=== PATIENT | male | born 2000 | race Caucasian/White ===

== ENCOUNTER 2025-03-26 19:44 | Emergency (ER) | payer OTHER, MEDICAID ==
[~2025-03-26] VITALS: Ht 170.2 cm; Wt 79.5 kg
--- NOTE | 2025-03-26 20:31 | ED.PDOC ---
Musculoskeletal HPI Comments 25y M who presents to the ED for chief complaint of L hand injury. Pt was playing a virtual simulation game and state he hit a wall with his L hand, index finger earlier this evening. Pt has since been having pain and swelling to the L index finger with noted CMS intact. Pt in the ED, otherwise denies numbness and swelling. Pt denies any other symptoms. Chief Complaint: Upper Extremity Time Seen by MD: 20:28 Reviewed Notes: Medications, Allergies Allergies: Coded Allergies: No Known Drug Allergy (Verified Allergy, Unknown, 03/26/25) Information Source: Patient, Friend Mode of Arrival: Ambulatory Brought in by: friend Past Medical History PAST MEDICAL HISTORY: Denies Surgical History: Denies all surgeries Family History Family History: Reviewed,noncontributory to illness Social History Smoker: Non-Smoker Alcohol: Denies ETOH Use Drugs: Denies Drug Use Lives In: Home Constitutional: denies: chills, diaphoresis, fatigue, fever, malaise, sweats, weakness, others EENTM: denies: blurred vision, double vision, ear bleeding, ear discharge, ear drainage, ear pain, ear ringing, eye pain, eye redness, hearing loss, mouth pain, mouth swelling, nasal discharge, nose bleeding, nose congestion, nose pain, photophobia, tearing, throat pain, throat swelling, voice changes, others Respiratory: denies: cough, hemoptysis, orthopnea, SOB at rest, shortness of breath, SOB with excertion, stridor, wheezing, others Cardiovascular: denies: chest pain, dizzy spells, diaphoresis, Dyspnea on exertion, edema, irregular heart beat, left arm pain, lightheadedness, palpitations, PND, syncope, others Gastrointestinal: denies: abdomen distended, abdominal pain, blood streaked bowels, constipated, diarrhea, dysphagia, difficulty swallowing, hematemesis, melena, nausea, poor appetite, poor fluid intake, rectal bleeding, rectal pain, vomiting, others Genitourinary: denies: burning, dysuria, flank pain, frequency, hematuria, incontinence, penile discharge, penile sore, pain, testicle pain, testicle swelling, urgency, others Neurological: denies: dizziness, fainting, headache, left sided numbness, left sided weakness, numbness, paresthesia, pre-existing deficit, right sided numbness, right sided weakness, seizure, speech problems, tingling, tremors, weakness, others Musculoskeletal: reports: joint pain, joint swelling; denies: back pain, gout, muscle pain, muscle stiffness, neck pain, others Integumetry: denies: bruises, change in color, change in hair/nails, dryness, laceration, lesions, lumps, rash, wounds, others Allergic/Immunocompromised: denies: Difficulty Healing, Frequent Infections, Hives, Itching, others Hematologic/Lymphatic: denies: anemia, blood clots, easy bleeding, easy bruising, swollen glands, others Endocrine: denies: excessive hunger, excessive sweating, excessive thirst, excessive urination, flushing, intolerance to cold, intolerance to heat, unexplained weight gain, unexplained weight loss, others Psychiatric: denies: anxiety, bipolar disorder, depression, hopeless, panic disorder, schizophrenia, sleepless, suicidal, others All Other Systems: Reviewed and Negative Physical Exam General Appearance: No Apparent Distress, Normal HEENT: Normal ENT Inspection, Pharynx Normal, TMs Normal Neck: Full Range of Motion, Non-Tender, Normal, Normal Inspection Respiratory: Chest Non-Tender, Lungs Clear, No Accessory Muscle Use, No Respiratory Distress, Normal Breath Sounds Cardiovascular: No Edema, No JVD, No Murmur, No Gallop, Normal Peripheral Pulses, Regular Rate/Rhythm Breast Exam: Deferred Gastrointestinal: No Organomegaly, Non Tender, No Pulsatile Mass, Normal Bowel Sounds, Soft Genitalia: Deferred Pelvic: Deferred Rectal: Deferred Extremities: Tender (L hand index finger) Musculoskeletal : Apperance: Normal Neurologic: Alert, 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 Was a procedure done?: No Differential Diagnosis EXT Differential Diagnosis: Fracture, Sprain, Contusion X-Ray, Labs, Meds, VS Vital Signs Date Time Temp Pulse Resp B/P (MAP) Pulse Ox O2 Delivery O2 Flow Rate FiO2 03/26/25 20:09 98.2 104 18 130/97 95 98.2 X-Ray, Labs, Meds, VS Comment Fracture of the left hand 2nd digit MCP Patient placed in volar splint Advised to follow up with PCP for orthopedic referral Time of 1ST Reevaluation: 21:00 Reevaluation 1ST: Unchanged Patient Education/Counseling: Diagnosis, Treatment, Need For Follow Up (Follow up with computer specialist in next available appointment) Family Education/Counseling: Diagnosis, Treatment, Need For Follow Up Departure 1 Departure Time of Disposition: 20:48 Impression: Primary Impression: Hand fracture, left Qualified Codes: S62.92XA - Unspecified fracture of left hand, initial encounter for closed fracture Disposition: HOME / SELF CARE / HOMELESS Condition: Stable Referrals: Orthopedics Discharged With: Self Critical Care Note Critical Care Time?: No Stability Stability form required: No Heart Score Heart Score: Heart Score Response (Comments) Value History N/A 0 EKG N/A 0 Age N/A 0 Risk Factors N/A 0 Troponin N/A 0 Total 0 I personally scribed for CHIQUIS PADRON ([email or web address]) on 03/26/25 at 20:31. Electronically submitted by Magdi BOYLE). CHIQUIS PADRON Mar 26, 2025 20:31
--- NOTE | 2025-03-26 20:52 | DVH ---
EXAM: XY L HAND 3V XRAY REASON FOR EXAM: 2nd digit pain TECHNIQUE: PA, lateral, and oblique views of the left hand are submitted for review. COMPARISON: None FINDINGS: There is acute, nondisplaced oblique fracture through the head and neck of the 2nd metacarpal with intra-articular extension. There is moderate soft tissue swelling about the 2nd metacarpophalangeal joint. IMPRESSION: Acute, nondisplaced oblique fracture through the head and neck of the 2nd metacarpal with intra-articular extension.
[2025-03-26 21:14] VITALS: BP 135/81; PULSE 65; RESP 18; TEMP 97.9; O2SAT 95
== END 2025-03-26 21:16 | disposition home or self-care (01) ==
LOC: ER 19:44
DX: S62.92XA Unspecified fracture of left hand, initial encounter for closed fracture (principal); W22.8XXA Striking against or struck by other objects, initial encounter; Y93.89 Activity, other specified; Y92.89 Other specified places as the place of occurrence of the external cause; Y99.8 Other external cause status
CPT/HCPCS: 29125; 73130